=== PATIENT | male | born 1985 ===

== ENCOUNTER 2017-06-17 11:06 | Emergency (ER) | payer SELFPAY ==
[2017-06-17 11:24] VITALS: BP 131/84; PULSE 73; RESP 20; TEMP 98.2; O2SAT 97
--- NOTE | 2017-06-17 12:22 | RAD ---
HISTORY: r/o infiltrate COMPARISON: Chest x-ray performed 05/07/13 TECHNIQUE: Chest PA and lateral FINDINGS: Examination limited by habitus. LUNGS: No focal consolidation. Please note that chest x-ray has limited sensitivity for the detection of pulmonary masses. PLEURA: No significant pleural effusion identified. No definite pneumothorax . CARDIOVASCULAR: The cardiomediastinal silhouette appears within normal limits of size. OSSEOUS STRUCTURES: No acute osseous abnormality identified. VISUALIZED UPPER ABDOMEN: Unremarkable. OTHER FINDINGS: None. IMPRESSION: No focal consolidation, significant pleural effusion, or definite pneumothorax identified.
--- NOTE | 2017-06-17 17:16 | C.PDOC ---
History Of Present Illness 31 year old male presents to the ED for evaluation of chest pain which has been intermittent for 4 weeks and cough which began 2 days ago. Patient describes his chest pain and sharp and non-radiating. He denies shortness of breath, body aches, recent travel, and sick contacts at this time. Time Seen by Provider: 06/17/17 12:07 Chief Complaint (Nursing): Chest Pain History Per: Patient History/Exam Limitations: no limitations Onset/Duration Of Symptoms: Intermittent Episodes (4 weeks ) Current Symptoms Are (Timing): Still Present Quality: Sharp, "Pain" Recent travel outside of the [place]: No Additional History Per: Patient Past Medical History Reviewed: Historical Data, Nursing Documentation, Vital Signs Vital Signs: Last Vital Signs Temp 98.2 F 06/17/17 11:21 Pulse 73 06/17/17 11:21 Resp 20 06/17/17 11:21 BP 131/84 06/17/17 11:21 Pulse Ox 97 06/17/17 17:21 - Medical History PMH: Asthma Surgical History: No Surg Hx Family History: States: Unknown Family Hx - Social History Hx Tobacco Use: No Hx Alcohol Use: No Hx Substance Use: No - Immunization History Hx Tetanus Toxoid Vaccination: No Hx Influenza Vaccination: No Hx Pneumococcal Vaccination: No Review Of Systems Cardiovascular: Positive for: Chest Pain Respiratory: Positive for: Cough. Negative for: Shortness of Breath Musculoskeletal: Negative for: Other (body aches ) Physical Exam - Physical Exam Appears: Non-toxic, No Acute Distress Skin: Normal Color, Warm, Dry Head: Atraumatic, Normacephalic Eye(s): bilateral: Normal Inspection Oral Mucosa: Moist Neck: Supple Chest: Symmetrical, No Deformity, No Tenderness Cardiovascular: Rhythm Regular, No Murmur Respiratory: Normal Breath Sounds, No Rales, No Rhonchi, No Wheezing Extremity: Normal ROM, Capillary Refill (less than 2 seconds ) Neurological/Psych: Oriented x3, Normal Speech, Normal Cognition Gait: Steady ED Course And Treatment ECG: Interpreted By Me, Viewed By Me ECG Rhythm: Sinus Rhythm Rate From EC O2 Sat by Pulse Oximetry: 97 (on RA) Pulse Ox Interpretation: Normal - Other Rad CXR X-Ray: Interpreted by Me, Viewed By Me, Read By Radiologist Interpretation: HISTORY: r/o infiltrate. COMPARISON: Chest x-ray performed . TECHNIQUE: Chest PA and lateral. FINDINGS: Examination limited by habitus. LUNGS: No focal consolidation. Please note that chest x-ray has limited sensitivity for the detection of pulmonary masses. PLEURA: No significant pleural effusion identified. No definite pneumothorax . CARDIOVASCULAR: The cardiomediastinal silhouette appears within normal limits of size. OSSEOUS STRUCTURES: No acute osseous abnormality identified. VISUALIZED UPPER ABDOMEN: Unremarkable. OTHER FINDINGS: None. IMPRESSION: No focal consolidation, significant pleural effusion, or definite pneumothorax identified. Medical Decision Making Medical Decision Making: Progress: CXR and EKG ordered and reviewed. Disposition - Disposition Referrals: [facility] [Outside] [facility] [Outside] Disposition: HOME/ ROUTINE Disposition Time: 12:30 Condition: GOOD Additional Instructions: Thank you for letting us take care of you today. The emergency medical care you received today was directed at your acute symptoms. If you were prescribed any medication, please fill it and take as directed. It may take several days for your symptoms to resolve. Return to the Emergency Department if your symptoms worsen, do not improve, or if you have any other problems. Please contact your doctor or call one of the physicians/clinics you have been referred to that are listed on the Patient Visit Information form that is included in your discharge packet. Bring any paperwork you were given at discharge with you along with any medications you are taking to your follow up visit. Our treatment cannot replace ongoing medical care by a primary care provider (PCP) outside of the emergency department. Thank you for allowing the [facility] team to be part of your care today. Please follow up with the clinic in 2-3 days for re-evaluation and further management. Prescriptions: Ibuprofen [Motrin] 600 mg PO Q6 PRN #20 tab PRN Reason: Pain, Moderate (4-7) Instructions: Costochondritis (ED) Forms: [employer] (Albanian) - Clinical Impression Clinical Impression: Costochondritis, acute - Scribe Statement The provider has reviewed the documentation as recorded by the Scribe (Simi Lange) Provider Attestation: All medical record entries made by the Scribe were at my direction and personally dictated by me. I have reviewed the chart and agree that the record accurately reflects my personal performance of the history, physical exam, medical decision making, and the department course for this patient. I have also personally directed, reviewed, and agree with the discharge instructions and disposition.
--- NOTE | 2017-06-19 15:20 | CARD ---
APPROVED REPORT EKG Measurement Heart [id number] MD [id number] <Conclusion> Normal sinus rhythm Normal ECG
== END 2017-06-17 13:10 | disposition home or self-care (01) ==
LOC: C.ER 11:06
DX: M94.0 Chondrocostal junction syndrome [Tietze] (principal)

== ENCOUNTER 2018-02-03 14:43 | Emergency (ER) | payer OTHER ==
[2018-02-03 15:00] VITALS: BP 134/93; PULSE 109; TEMP 98; O2SAT 98
[2018-02-03] MEDS ORDERED: Sodium Chloride 0.9% 1,000 ML IV ONE ×2 (15:16→15:17)
--- NOTE | 2018-02-03 15:19 | C.PDOC ---
History Of Present Illness 32 year old male presents to the ED complaining of multiple episodes of diarrhea and vomiting ongoing for the last 2 days. Associated symptoms include bloody stool, fever and abdominal pain. He denies any urinary symptoms. Time Seen by Provider: 02/03/18 15:06 Chief Complaint (Nursing): Abdominal Pain History Per: Patient History/Exam Limitations: no limitations Onset/Duration Of Symptoms: Days (2) Current Symptoms Are (Timing): Still Present Location Of Pain/Discomfort: Diffuse Associated Symptoms: Fever, Vomiting, Diarrhea Recent travel outside of the [place]: No Past Medical History Reviewed: Historical Data, Nursing Documentation, Vital Signs Vital Signs: Last Vital Signs Temp 98 F 02/03/18 14:58 Pulse 109 H 02/03/18 14:58 Resp 16 02/03/18 14:58 BP 134/93 H 02/03/18 14:58 Pulse Ox 98 02/03/18 14:58 - Medical History PMH: No Chronic Diseases Denies: Asthma (denies 02/03/18) Other PMH: Respiratory disorders Surgical History: No Surg Hx Family History: States: No Known Family Hx - Social History Hx Tobacco Use: No Hx Alcohol Use: No Hx Substance Use: No - Immunization History Hx Tetanus Toxoid Vaccination: No Hx Influenza Vaccination: No Hx Pneumococcal Vaccination: No Review Of Systems Constitutional: Positive for: Fever Gastrointestinal: Positive for: Vomiting, Abdominal Pain, Diarrhea, Hematochezia Genitourinary: Negative for: Dysuria, Hematuria Physical Exam - Physical Exam Appears: Non-toxic Skin: Warm, Dry Head: Normacephalic Eye(s): bilateral: Normal Inspection Nose: Normal Oral Mucosa: Moist Neck: Normal ROM Chest: Symmetrical Cardiovascular: Rhythm Regular Respiratory: Normal Breath Sounds, No Rales, No Rhonchi, No Wheezing Gastrointestinal/Abdominal: Soft, Tenderness, No Guarding, No Rebound Extremity: Normal ROM Neurological/Psych: Oriented x3, Normal Speech Gait: Steady ED Course And Treatment - Laboratory Results Result Diagrams: 02/03/18 15:33 02/03/18 15:33 Lab Interpretation: Normal O2 Sat by Pulse Oximetry: 98 (RA) Pulse Ox Interpretation: Normal - CT Scan/US No standard instances Other Rad Studies (CT/US): Read By Radiologist, Radiology Report Reviewed CT/US Interpretation: FINDINGS: LOWER THORAX: Unremarkable. LIVER: Unr emarkable. No gross lesion or ductal dilatation. GALLBLADDER AND BILE DUCTS: Unremarkable. PANCREAS: Unremarkable. No gross lesion or ductal dilatation. SPLEEN: Unremarkable. ADRENALS: Unremarkable. KIDNEYS AND URETERS: Unremarkable. No hydronephrosis. VASCULATURE: Unremarkable. No aortic aneurysm. BOWEL: There is greater gas seen in the right colon than present in the left colon. Left colonic circumferential mild to moderate circumferential mural thickening with or without possible submucosal edema present. On this non IV contrast enhanced study. No distension to suggest an obstruction noted. There is pericolonic minimal surrounding dirty fat suggested. A left sided colitis is a consideration. There are mostly left-sided small bowel loops with inferred increased fluid within them better coalescing in the left paracentral and left-sided abdomen with probable concomitant mild mesenteric edema present. There is paucity of gas in the small bowel loops. No high-grade small-bowel obstruction believe present. However continued surveillance is advised. A enteritis is compatible with this appearance. APPENDIX: Unremarkable. Normal appendix. PERITONEUM: Unremarkable. No free fluid. No free air. LYMPH NODES: Unremarkable. No enlarged lymph nodes. BLADDER: Unremarkable. REPRODUCTIVE: Unremarkable. BONES: No acute fracture. OTHER FINDINGS: Incidentally noted are small bilateral groin fat only containing hernias. IMPRESSION: Apparent mural circumferential thickening possible submucosal edema left colon-a colitis is a consideration as detailed above. Similarly the small-bowel findings can also be seen with an enteritis. No complete or high-grade a bowel obstruction is now suggested. Continued follow-up is advised. No free air seen. No CT e vidence of acute appendicitis. Progress Note: Treated with IVF NSS x 2 liters, zofran and tordol. on re- evaluation abdomen mild diffuse tenderness. Treated with augmentin 875 mg PO. Discharge to follow up at clinic Reassessment Condition: Improved Medical Decision Making Medical Decision Making: Orders: - CT Abd/Pel - Toradol 30mg IVP - Zofran 4mg IVP - IV Fluids - UA - Labwork Disposition Counseled Patient/Family Regarding: Studies Performed, Diagnosis, Need For Followup, Rx Given - Disposition Disposition: HOME/ ROUTINE Disposition Time: 17:00 Condition: IMPROVED Additional Instructions: Follow up with clinic for further evaluation Return to ED if any increase symptoms Prescriptions: Amoxicillin/Clavulanate [Augmentin 875 MG-125 MG] 1 tab PO BID #14 tab Instructions: Ulcerative Colitis in Adults, Viral Gastroenteritis, Adult (DC) Forms: [employer] (Beninese) - POA Present On Arrival: None - Clinical Impression Clinical Impression: Abdominal pain, Abdominal colic, Diarrhea, Colitis - PA / [employer] / Resident Statement MD/DO has reviewed & agrees with the documentation as recorded. - Scribe Statement The provider has reviewed the documentation as recorded by the Scribe Kimber Tolliver All medical record entries made by the Scribe were at my direction and personally dictated by me. I have reviewed the chart and agree that the record accurately reflects my personal performance of the history, physical exam, medical decision making, and the department course for this patient. I have also personally directed, reviewed, and agree with the discharge instructions and disposition.
[2018-02-03 15:40] LABS: BASO # 0.1 K/uL (0.0-0.2); EOS % 0.1 % (0.0-4.0); HEMOGLOBIN 15.3 g/dL (12.0-18.0); LYMPH # 1.1 K/uL (1.0-4.3); LYMPH % 21.4 % (20.0-40.0); MEAN CORPUSCULAR HEMOGLOBIN 32.1 pg (27.0-31.0); MEAN PLATELET VOLUME 7.7 fL (7.2-11.7); MONO # 0.6 K/uL (0.0-0.8); MONO % 10.7 % (0.0-10.0); NEUT # 3.6 K/uL (1.8-7.0); NEUT % 66.8 % (50.0-75.0); NRBC % 0.4 % (0.0-2.0); RBC 4.78 Mil/uL (4.40-5.90); RED CELL DISTRIBUTION WIDTH 12.5 % (11.5-14.5); WHITE BLOOD COUNT 5.3 K/uL (4.8-10.8)
[2018-02-03 15:46] LABS: MEAN CELL VOLUME 91.9 fL (80.0-94.0)
[2018-02-03 15:48] LABS: ALB/GLOB RATIO 1.3 (1.0-2.1); ALBUMIN 4.6 g/dL (3.5-5.0); ALT/SGPT 111 U/L (21-72); AST/SGOT 98 U/L (17-59); BLOOD UREA NITROGEN 10 mg/dL (9-20); CALCIUM 9.4 mg/dl (8.6-10.4); GFR NON-AFRICAN AMERICAN > 60; LIPASE 81 U/L (23-300)
[2018-02-03 15:49] LABS: SQUAMOUS EPITHIAL 1 /hpf (0-5); URINE BILIRUBIN NEGATIVE (NEGATIVE); URINE BLOOD 1+ (NEGATIVE); URINE CLARITY Hazy (Clear); URINE COLOR Amber (YELLOW); URINE GLUCOSE (UA) NORMAL (Normal); URINE LEUKOCYTE ESTERASE NEG Leu/uL (Negative); URINE PROTEIN 3+ mg/dL (NEGATIVE); URINE UROBILINOGEN NORMAL mg/dL (0.2-1.0)
--- NOTE | 2018-02-03 16:09 | CT ---
Date of service: 02/03/2018 PROCEDURE: CT Abdomen and Pelvis without intravenous contrast HISTORY: Pain COMPARISON: None. TECHNIQUE: Technique. Contrast dose: None Radiation dose: Total exam DLP = 918 mGy-cm. This CT exam was performed using one or more of the following dose reduction techniques: Automated exposure control, adjustment of the mA and/or kV according to patient size, and/or use of iterative reconstruction technique. FINDINGS: LOWER THORAX: Unremarkable. LIVER: Unremarkable. No gross lesion or ductal dilatation. GALLBLADDER AND BILE DUCTS: Unremarkable. PANCREAS: Unremarkable. No gross lesion or ductal dilatation. SPLEEN: Unremarkable. ADRENALS: Unremarkable. KIDNEYS AND URETERS: Unremarkable. No hydronephrosis. VASCULATURE: Unremarkable. No aortic aneurysm. BOWEL: There is greater gas seen in the right colon than present in the left colon. Left colonic circumferential mild to moderate circumferential mural thickening with or without possible submucosal edema present. On this non IV contrast enhanced study. No distension to suggest an obstruction noted. There is pericolonic minimal surrounding dirty fat suggested. A left sided colitis is a consideration. There are mostly left-sided small bowel loops with inferred increased fluid within them better coalescing in the left paracentral and left-sided abdomen with probable concomitant mild mesenteric edema present. There is paucity of gas in the small bowel loops. No high-grade small-bowel obstruction believe present. However continued surveillance is advised. A enteritis is compatible with this appearance APPENDIX: Unremarkable. Normal appendix. PERITONEUM: Unremarkable. No free fluid. No free air. LYMPH NODES: Unremarkable. No enlarged lymph nodes. BLADDER: Unremarkable. REPRODUCTIVE: Unremarkable. BONES: No acute fracture. OTHER FINDINGS: Incidentally noted are small bilateral groin fat only containing hernias. IMPRESSION: Apparent mural circumferential thickening possible submucosal edema left colon-a colitis is a consideration as detailed above. Similarly the small-bowel findings can also be seen with an enteritis. No complete or high-grade a bowel obstruction is now suggested. Continued follow-up is advised. No free air seen. No CT evidence of acute appendicitis.
[2018-02-03] MEDS ORDERED: Amoxicillin-Clav 875-125 mg Tab PO STA (16:47)
[2018-02-03] MEDS ORDERED: Amoxicillin-Clav 875-125 mg Tab PO ONE (17:12)
[2018-02-03 17:18] VITALS: RESP 20
== END 2018-02-03 17:18 | disposition home or self-care (01) ==
LOC: C.ER 14:43
DX: K52.9 Noninfective gastroenteritis and colitis, unspecified (principal); R19.7 Diarrhea, unspecified; R10.84 Generalized abdominal pain
CPT/HCPCS: 74176; 80053; 81001; 83690; 85025; 96361; 96374; 96375; 99284; J1885; J2405; J7030